=== PATIENT | female | born 1960 | race Caucasian/White ===

== ENCOUNTER → 2017-06-05 | Outpatient (CLI) | payer BC ==
[2017-06-05 09:03] LABS: CREATININE 0.74 mg/dL (0.55-1.02)
--- NOTE | 2017-06-06 09:24 | CT ---
HISTORY: Swollen lymph load in the left side of the neck below the jaw line. Patient has sinus issue s. Study: Soft tissue CT neck without IV contrast Comparison: Report of targeted ultrasound of the left submandibular region done on 05/21/[address] Mercer's office. Technique: Axial CT acquisitions through the neck was performed during IV contrast material administr ation. Coronal and sagittal images are also reviewed. Dose reduction techniques utilized automatic ex posure control. A metallic marker was placed at the level of the palpable node in the left submandibu lar region. Findings: Lung apices clear. The visualized posterior fossa and intracranial regions are unremarkable. Paranasa l sinuses are well aerated and clear. There is a soft tissue polypoid mass extending from the posteri or nasal cavity into the nasopharynx. This measures about 1.7 cm in dimension. Direct visualization a nd biopsy may be needed. The parotid glands, submandibular glands and thyroid gland regions are all n ormal. A 1.2 cm lymph node is seen posterior and lateral to the left submandibular salivary gland. Th is displays a normal reniform appearance and no evidence of significant enhancement or hypoattenuatio n. A similar lymph node is present on the right which is slightly smaller. Remainder of the lymph nod es are unremarkable. No evidence of cystic or solid mass is seen. The hypopharynx and larynx regions are unremarkable. Osseous structures are intact. IMPRESSION: 1.2 cm lymph node present posterior and lateral to the left submandibular salivary gland. This displa ys a normal reniform appearance without evidence of contrast enhancement or hypoattenuation. A simila r, smaller lymph node is present on the right at this level. 1.7 cm polypoid mass extending from the posterior nasal cavity into the nasopharynx. This should be c onsidered for direct visualization. Biopsy may be needed. Reported By:
== END ==
LOC: RAD 08:22
PROVIDERS: ATTEND Internal Medicine
DX: R59.0 Localized enlarged lymph nodes (principal)
CPT/HCPCS: 36415; 70491; 82565; 84520; A4222